=== PATIENT | female | born 1935 | race Two or more races ===

== ENCOUNTER 2017-03-30 09:49 | Emergency (ER) | payer OTHER ==
[~2017-03-30] VITALS: Ht 165.1 cm; Wt 69.9 kg
[~2017-03-30 09:49] MED LIST: ALBU2SYP PO; ALBUAER3 IN; ATOR1TAB PO; CETI-41 PO; FLUT50SP13; HYDR25TA4 PO; LISI-646 PO; PRED-188 PO; PSEU-123 PO
[2017-03-30 11:08] LABS: Basophils # (auto) 0.1 uL; Basophils % (auto) 0.8 % (0.0-2.0); CONDITION Y; Eosinophils # (auto) 0.1 uL; Eosinophils % (auto) 1.6 % (0.0-7.0); Hematocrit 43.3 % (36.0-46.0); Hemoglobin 14.5 g/dL (12.2-16.2); Lymphocytes # (auto) 1.5 uL; Lymphocytes % (auto) 21.6 % (10.0-50.0); Mean Corpuscular Hemoglobin 30.2 pg (28.0-32.0); Mean Corpuscular Hgb Conc. 33.4 g/dL (32.0-36.0); Mean Corpuscular Volume 90.4 fL (80.0-100.0); Mean Platelet Volume 7.9 fL (7.4-10.4); Monocytes # (auto) 0.5 uL; Neutrophils # (auto) 4.9 uL; Platelet Count (auto) 287 10^3/uL (140-450); Red Cell Distribution Width 13.3 % (11.6-16.0); White Blood Cell 7.1 10^3/uL (4.4-10.8)
[2017-03-30 11:28] LABS: Albumin 3.6 g/dL (3.4-5.0); BUN/Creatinine Ratio 29.4; Bilirubin, Total 0.5 mg/dL (0.2-1.0); Calcium 8.7 mg/dL (8.5-10.1); Potassium 4.2 mmol/L (3.5-5.1); Total Protein 7.6 g/dL (6.4-8.2)
[2017-03-30 13:45] VITALS: BP 155/89
== END 2017-03-30 14:20 | disposition home or self-care (01) ==
LOC: ER 09:51
DX: I87.2 Venous insufficiency (chronic) (peripheral) (principal); J44.9 Chronic obstructive pulmonary disease, unspecified; E78.5 Hyperlipidemia, unspecified; I10 Essential (primary) hypertension; Z79.899 Other long term (current) drug therapy; Z98.61 Coronary angioplasty status
CPT/HCPCS: 36415; 73610; 73630; 80053; 85025; 93971

== ENCOUNTER 2017-07-30 11:06 | Emergency (ER) | payer OTHER ==
[~2017-07-30] VITALS: Ht 162.6 cm; Wt 77.1 kg
[2017-07-30 12:19] LABS: Basophils # (auto) 0.1 uL; Basophils % (auto) 1.4 % (0.0-2.0); Eosinophils # (auto) 0.1 uL; Eosinophils % (auto) 1.7 % (0.0-7.0); Hematocrit 42.8 % (36.0-46.0); Hemoglobin 14.7 g/dL (12.2-16.2); Lymphocytes # (auto) 1.9 uL; Lymphocytes % (auto) 24.6 % (10.0-50.0); Mean Corpuscular Hemoglobin 30.7 pg (28.0-32.0); Mean Corpuscular Hgb Conc. 34.4 g/dL (32.0-36.0); Mean Corpuscular Volume 89.2 fL (80.0-100.0); Mean Platelet Volume 7.6 fL (6.9-10.8); Monocytes # (auto) 0.6 uL; Monocytes % (auto) 7.4 % (0.0-12.0); Neutrophils # (auto) 5.1 uL; Neutrophils % (auto) 64.9 % (37.0-80.0); Nucleated Red Blood Cells % 0.1 %; Platelet Count (auto) 193 10^3/uL (140-450); Red Cell Distribution Width 13.7 % (11.8-14.3); White Blood Cell 7.8 10^3/uL (4.4-10.8)
[2017-07-30 12:40] LABS: Albumin 3.6 g/dL (3.4-5.0); Anion Gap 9 (5-15); Aspartate Aminotransferase 15 U/L (15-37); Blood Urea Nitrogen 11 mg/dL (7-18); Calcium 8.9 mg/dL (8.5-10.1); Carbon Dioxide 28 mmol/L (21-32); Chloride 107 mmol/L (98-107); GFR African American 152 mL/min; GFR Non-African American 125 mL/min; Glucose 90 mg/dL (74-106); Potassium 3.8 mmol/L (3.5-5.1); Sodium 144 mmol/L (136-145)
[2017-07-30 12:44] VITALS: BP 186/86
[2017-07-30 12:44] LABS: Alkaline Phosphatase 111 U/L (45-117); Bilirubin, Total 0.6 mg/dL (0.2-1.0); Total Protein 7.4 g/dL (6.4-8.2)
[2017-07-30] MEDS ORDERED: cefTRIAXone 1GM/50ML D5W 50 ML IV ONE (14:00)
== END 2017-07-30 18:25 | disposition home or self-care (01) ==
LOC: ER 11:06
DX: L03.116 Cellulitis of left lower limb (principal); J44.9 Chronic obstructive pulmonary disease, unspecified; E78.5 Hyperlipidemia, unspecified; I10 Essential (primary) hypertension; Z98.61 Coronary angioplasty status; Z79.899 Other long term (current) drug therapy
CPT/HCPCS: 36415; 71020; 80053; 83735; 84484; 85025; 87040; 93005; 93971

== ENCOUNTER → 2017-12-07 | Outpatient (CLI) | payer OTHER ==
[~2017-12-07] MED LIST changes: -ALBU2SYP PO; +ALBU2SYP3 PO
[2017-12-07 13:21] LABS: Basophils # (auto) 0.1 uL; Basophils % (auto) 0.9 % (0.0-2.0); Eosinophils # (auto) 0.1 uL; Eosinophils % (auto) 1.1 % (0.0-7.0); Hematocrit 43.6 % (36.0-46.0); Lymphocytes # (auto) 2.1 uL; Lymphocytes % (auto) 27.2 % (10.0-50.0); Mean Corpuscular Hemoglobin 30.9 pg (28.0-32.0); Mean Corpuscular Hgb Conc. 34.4 g/dL (32.0-36.0); Monocytes # (auto) 0.5 uL; Monocytes % (auto) 6.4 % (0.0-12.0); Neutrophils % (auto) 64.4 % (37.0-80.0); Nucleated Red Blood Cells % 0.2 %; Platelet Count (auto) 246 10^3/uL (140-450); Red Blood Cells 4.84 10^6/uL (4.0-5.20); Red Cell Distribution Width 13.5 % (11.8-14.3); White Blood Cell 7.8 10^3/uL (4.4-10.8)
[2017-12-07 13:40] LABS: Albumin 4.1 g/dL (3.4-5.0); BUN/Creatinine Ratio 16.7; Calcium 9.1 mg/dL (8.5-10.1); Potassium 3.6 mmol/L (3.5-5.1)
[2017-12-07 13:43] LABS: Bilirubin, Total 0.6 mg/dL (0.2-1.0)
== END | disposition home or self-care (01) ==
LOC: LAB 13:01
PROVIDERS: ATTEND Internal Medicine
DX: J40 Bronchitis, not specified as acute or chronic (principal); I10 Essential (primary) hypertension
CPT/HCPCS: 36415; 80053; 84439; 84443; 85025; 85652

== ENCOUNTER → 2018-03-28 | Outpatient (CLI) | payer OTHER ==
[2018-03-28 08:45] LABS: Basophils # (auto) 0.1 uL; Basophils % (auto) 0.8 % (0.0-2.0); Eosinophils # (auto) 0.1 uL; Eosinophils % (auto) 1.6 % (0.0-7.0); Hematocrit 44.8 % (36.0-46.0); Hemoglobin 15.1 g/dL (12.2-16.2); Lymphocytes # (auto) 1.7 uL; Lymphocytes % (auto) 22.6 % (10.0-50.0); Mean Corpuscular Hemoglobin 30.3 pg (28.0-32.0); Mean Corpuscular Hgb Conc. 33.8 g/dL (32.0-36.0); Mean Corpuscular Volume 89.7 fL (80.0-100.0); Monocytes # (auto) 0.6 uL; Monocytes % (auto) 8.5 % (0.0-12.0); Neutrophils # (auto) 4.9 uL; Neutrophils % (auto) 66.5 % (37.0-80.0); Nucleated Red Blood Cells % 0.1 %; Platelet Count (auto) 224 10^3/uL (140-450); Red Cell Distribution Width 13.2 % (11.8-14.3); White Blood Cell 7.3 10^3/uL (4.4-10.8)
[2018-03-28 09:15] LABS: BUN/Creatinine Ratio 25.9; Calcium 8.5 mg/dL (8.5-10.1); Potassium 3.6 mmol/L (3.5-5.1)
== END | disposition home or self-care (01) ==
LOC: LAB 08:16
PROVIDERS: ATTEND Internal Medicine
DX: J45.909 Unspecified asthma, uncomplicated (principal); R05 Cough; I10 Essential (primary) hypertension
CPT/HCPCS: 36415; 80048; 80061; 83615; 84443; 85025; 85652

== ENCOUNTER → 2018-10-12 | Outpatient (CLI) | payer OTHER ==
[2018-10-12 08:13] LABS: Urine Bacteria FEW /hpf (None Seen); Urine Blood Negative /uL (Negative); Urine Mucus FEW (None Seen); Urine WBC 1 /hpf (0 - 5)
[2018-10-12 08:31] LABS: Albumin 3.5 g/dL (3.4-5.0); Calcium 8.6 mg/dL (8.5-10.1); Potassium 3.9 mmol/L (3.5-5.1)
[2018-10-12 08:35] LABS: Bilirubin, Total 0.3 mg/dL (0.2-1.0); Total Protein 7.2 g/dL (6.4-8.2)
[2018-10-12 08:43] LABS: Free T4 (Free Thyroxine) 1.04 ng/dL (0.89-1.76)
== END | disposition home or self-care (01) ==
LOC: LAB 07:25
PROVIDERS: ATTEND Internal Medicine
DX: E78.5 Hyperlipidemia, unspecified (principal); R73.03 Prediabetes; R42 Dizziness and giddiness
CPT/HCPCS: 36415; 80053; 80061; 81001; 82043; 82607; 83036; 84439; 84443

== ENCOUNTER 2019-01-09 15:43 | Emergency (ER) | payer OTHER ==
[~2019-01-09] VITALS: Ht 160 cm; Wt 80.7 kg
[2019-01-09 15:53] VITALS: BP 96/51
[2019-01-09 16:25] LABS: Basophils # (auto) 0.1 uL; Basophils % (auto) 0.9 % (0.0-2.0); Eosinophils # (auto) 0.1 uL; Eosinophils % (auto) 1.7 % (0.0-7.0); Hematocrit 40.8 % (36.0-46.0); Hemoglobin 13.5 g/dL (12.2-16.2); Lymphocytes # (auto) 1.6 uL; Mean Corpuscular Hemoglobin 30.7 pg (28.0-32.0); Mean Corpuscular Hgb Conc. 33.1 g/dL (32.0-36.0); Mean Corpuscular Volume 92.8 fL (80.0-100.0); Monocytes # (auto) 0.7 uL; Monocytes % (auto) 9.4 % (0.0-12.0); Neutrophils # (auto) 4.8 uL; Platelet Count (auto) 213 10^3/uL (140-450); Red Blood Cells 4.39 10^6/uL (4.0-5.20); Red Cell Distribution Width 13.7 % (11.8-14.3); White Blood Cell 7.2 10^3/uL (4.4-10.8)
[2019-01-09 16:36] LABS: Albumin 3.3 g/dL (3.4-5.0); Anion Gap 5 (5-15); Blood Urea Nitrogen 14 mg/dL (7-18); Calcium 8.5 mg/dL (8.5-10.1); Carbon Dioxide 27 mmol/L (21-32); Chloride 106 mmol/L (98-107); Glucose 95 mg/dL (74-106); Magnesium 2.2 mg/dL (1.6-2.6); Potassium 3.9 mmol/L (3.5-5.1); Sodium 138 mmol/L (136-145)
[2019-01-09 16:41] LABS: Alanine Aminotransferase 31 U/L (13-56); Alkaline Phosphatase 94 U/L (45-117); Aspartate Aminotransferase 19 U/L (15-37); BUN/Creatinine Ratio 20.3; Bilirubin, Total 0.2 mg/dL (0.2-1.0); GFR African American 104 mL/min; GFR Non-African American 86 mL/min
== END 2019-01-09 19:22 | disposition left against medical advice (07) ==
LOC: ER 15:52
DX: R06.02 Shortness of breath (principal); R05 Cough; Z53.21 Procedure and treatment not carried out due to patient leaving prior to being seen by health care provider
CPT/HCPCS: 36415; 71045; 80053; 83735; 83880; 84484; 85025; 93005

== ENCOUNTER 2019-08-19 13:17 | Emergency (ER) | payer OTHER ==
[~2019-08-19] VITALS: Ht 170.2 cm; Wt 90.7 kg
[2019-08-19 14:08] LABS: Basophils # (auto) 0.1 uL; Basophils % (auto) 0.8 % (0.0-2.0); Eosinophils # (auto) 0.2 uL; Eosinophils % (auto) 1.3 % (0.0-7.0); Hemoglobin 13.3 g/dL (12.2-16.2); Lymphocytes # (auto) 1.2 uL; Mean Corpuscular Hemoglobin 30.7 pg (28.0-32.0); Mean Corpuscular Hgb Conc. 33.2 g/dL (32.0-36.0); Mean Corpuscular Volume 92.7 fL (80.0-100.0); Monocytes # (auto) 1.2 uL; Monocytes % (auto) 9.3 % (0.0-12.0); Neutrophils # (auto) 10.5 uL; Neutrophils % (auto) 79.6 % (37.0-80.0); Platelet Count (auto) 234 10^3/uL (140-450); Red Blood Cells 4.32 10^6/uL (4.0-5.20); Red Cell Distribution Width 13.1 % (11.8-14.3); White Blood Cell 13.1 10^3/uL (4.4-10.8)
[2019-08-19] MEDS ORDERED: IPRATROPIUM BROM 0.5 MG/2.5ML INH SOL NEB ONE (14:15)
[2019-08-19] MEDS ORDERED: ALBUTEROL SULF 2.5 MG/0.5ML(0.5%) NEB SOLN NEB ONE (14:15)
[2019-08-19] MEDS ORDERED: methylPREDNISolone SOD SUCC 125 MG/2 ML VL IV ONE (14:15)
[2019-08-19 14:37] LABS: Albumin 3.1 g/dL (3.4-5.0); Calcium 8.8 mg/dL (8.5-10.1); Magnesium 2.3 mg/dL (1.6-2.6)
[2019-08-19 14:45] LABS: BUN/Creatinine Ratio 16.7; Bilirubin, Total 0.6 mg/dL (0.2-1.0); Total Protein 7.8 g/dL (6.4-8.2)
[2019-08-19] MEDS ORDERED: IOHEXOL 350 MG/ML 100ML IJ ONE (17:03)
[2019-08-19 18:53] LABS: Urine Bacteria FEW /hpf (None Seen); Urine Blood TRACE /uL (Negative); Urine Mucus MODERATE (None Seen); Urine Specific Gravity 1.028 (1.001-1.035); Urine WBC 34 /hpf (0 - 5)
[2019-08-19 21:00] VITALS: BP 136/58
[2019-08-19] MEDS ORDERED: cefTRIAXone 1GM/50ML D5W 50 ML IV ONE (21:00)
== END 2019-08-19 22:00 | disposition home or self-care (01) ==
LOC: EDBD 13:17 → ER 13:20
DX: J44.9 Chronic obstructive pulmonary disease, unspecified (principal); R53.1 Weakness; R79.89 Other specified abnormal findings of blood chemistry; R79.1 Abnormal coagulation profile; E78.00 Pure hypercholesterolemia, unspecified; I10 Essential (primary) hypertension; E78.5 Hyperlipidemia, unspecified
CPT/HCPCS: 36415; 71046; 71275; 80053; 81001; 83735; 84484; 85025; 85379; 87804; 93005; 94640; 96365; 96375; 99284; J0696; J2930; J7611; J7644; Q9967

== ENCOUNTER → 2020-03-11 | Outpatient (CLI) | payer OTHER ==
[2020-03-11 09:30] LABS: Albumin 3.8 g/dL (3.4-5.0); Potassium 4.5 mmol/L (3.5-5.1)
[2020-03-11 09:35] LABS: BUN/Creatinine Ratio 21.7; Bilirubin, Total 0.5 mg/dL (0.2-1.0); Calcium 9.4 mg/dL (8.5-10.1); Total Protein 7.8 g/dL (6.4-8.2)
== END | disposition home or self-care (01) ==
LOC: LAB 08:49
PROVIDERS: ATTEND Internal Medicine
DX: I50.32 Chronic diastolic (congestive) heart failure (principal); E11.9 Type 2 diabetes mellitus without complications; I10 Essential (primary) hypertension
CPT/HCPCS: 36415; 80053; 80061; 82043; 83036; 83880; 84443

== ENCOUNTER 2020-03-29 11:45 | Inpatient (IN) | payer OTHER ==
[~2020-03-29] VITALS: Ht 165.1 cm; Wt 74.3 kg
[2020-03-29 13:08] LABS: Basophils # (auto) 0.1 10 ^3/uL (0-0.2); Basophils % (auto) 0.9 % (0.0-2.0); Eosinophils # (auto) 0.2 10 ^3/uL (0-0.8); Eosinophils % (auto) 3.3 % (0.0-7.0); Hematocrit 42.3 % (36.0-46.0); Hemoglobin 14.4 g/dL (12.2-16.2); Lymphocytes # (auto) 1.3 10 ^3/uL (0.4-5.4); Lymphocytes % (auto) 17.9 % (10.0-50.0); Mean Corpuscular Hgb Conc. 34.1 g/dL (32.0-36.0); Mean Corpuscular Volume 93.9 fL (80.0-100.0); Monocytes # (auto) 0.5 10 ^3/uL (0-1.3); Monocytes % (auto) 6.9 % (0.0-12.0); Neutrophils # (auto) 5.3 10 ^3/uL (1.6-8.6); Nucleated Red Blood Cells % 0.1 %; Platelet Count (auto) 227 10^3/uL (140-450); Red Cell Distribution Width 13.9 % (11.8-14.3); White Blood Cell 7.4 10^3/uL (4.4-10.8)
[2020-03-29 13:26] LABS: Albumin 3.4 g/dL (3.4-5.0); Calcium 8.7 mg/dL (8.5-10.1); Magnesium 2.2 mg/dL (1.6-2.6); Potassium 4.3 mmol/L (3.5-5.1)
[2020-03-29 13:28] LABS: BUN/Creatinine Ratio 21.1
[2020-03-29 13:42] LABS: Bilirubin, Total 0.4 mg/dL (0.2-1.0); Total Protein 7.4 g/dL (6.4-8.2)
[2020-03-29] MEDS ORDERED: MORPHINE SULF INJ 2 MG/ML SYRINGE 1ML IV PRN (14:15)
[2020-03-29] MEDS ORDERED: NITROGLYCERIN 0.4 MG SL TAB SL PRN (14:15)
[2020-03-29] MEDS ORDERED: DEXTROSE (50%) 50ML SYRG IV PRN (14:30)
[2020-03-29] MEDS ORDERED: ZOLPIDEM TARTRATE 5 MG TAB PO PRN (14:30)
[2020-03-29] MEDS ORDERED: ACETAMINOPHEN 500 MG TAB PO PRN (14:30)
[2020-03-29] MEDS ORDERED: ALBUTEROL SULF 2.5 MG/0.5ML(0.5%) NEB SOLN NEB PRN (14:30)
[2020-03-29] MEDS: DOXYCYCLINE 100MG/250ML 250 ML IV SCH (15:23)
[2020-03-29 16:06] VITALS: BP 159/85
--- NOTE | 2020-03-29 16:06 | NUR ---
Received patient on the floor. Patient shows no signs of distress at this time. Bed in lowest position, side rails up x2, and the call light is within reach.
[2020-03-29 17:00] VITALS: BP 159/85
[2020-03-29] MEDS: InsuLIN REG 1unit/0.01ml Soln (100units/ml) SC SCH ×2 (17:00→22:00)
[2020-03-29] MEDS: ACCU-CHEK COMFORT CURVE STRIP VI SCH ×2 (17:30→22:00)
[2020-03-29 17:53] LABS: CRP High Sensitivity 0.2 mg/dL (< 0.3)
[2020-03-29] MEDS: IPRATROPIUM BROM 0.5 MG/2.5ML INH SOL NEB SCH (17:57)
[2020-03-29] MEDS: ALBUTEROL SULF 2.5 MG/0.5ML(0.5%) NEB SOLN NEB SCH (17:57)
[2020-03-29 18:00] VITALS: BP 159/85
--- NOTE | 2020-03-29 18:03 | NUR ---
Paged Hospitalist regarding increased blood pressure and trops.
--- NOTE | 2020-03-29 18:11 | NUR ---
Dr Molina called back. New orders received.
[2020-03-29] MEDS ORDERED: hydrALAZINE HCL 20 MG/ML VL IV PRN (18:15)
[2020-03-29] MEDS ORDERED: ENOXAPARIN SOD 100 MG/1 ML SYRINGE SC ONE (18:15)
--- NOTE | 2020-03-29 19:15 | NUR ---
Opening Shift Note Received report from charisma Rodrigues RN. Assumed care of patient, awake and alert. No S/S of distress/SOB or pain. Instructed on POC and to call for assist PRN, will continue to monitor for changes Q1hr and PRN. Bed placed in lowest position, bed alarm turned on and call light within reach.
--- NOTE | 2020-03-29 19:26 | NUR ---
Endorsed care to Ioana RN. Patient shows no signs of distress.
[2020-03-29 20:00] VITALS: BP 131/54
[2020-03-29] MEDS: SODIUM CHLOR 0.9% PF (SALINE LOCK) 10ML VIAL/SYR IV SCH (21:53)
[2020-03-29] MEDS: LACTULOSE 20Gm/30ML SOLN PO PRN (21:54)
[2020-03-29] MEDS: METOPROLOL TARTRATE 25 MG TAB PO SCH (21:54)
[2020-03-29] MEDS: ATORVASTATIN 20 MG TAB PO SCH (21:54)
--- NOTE | 2020-03-29 21:54 | NUR ---
Patient is requesting something for constipation. Given lactulose as ordered. Will monitor
[2020-03-29 22:00] VITALS: BP 131/54
--- NOTE | 2020-03-30 | NUR ---
Advise patient of Nothing -by-Mouth status r/t possible stress test today. Emptied water containers, patient verbalized understanding.
[2020-03-30] MEDS: IPRATROPIUM BROM 0.5 MG/2.5ML INH SOL NEB SCH ×5 (00:10→23:39)
[2020-03-30] MEDS: ALBUTEROL SULF 2.5 MG/0.5ML(0.5%) NEB SOLN NEB SCH ×5 (00:10→23:39)
[2020-03-30] MEDS: DOXYCYCLINE 100MG/250ML 250 ML IV SCH ×2 (02:30→13:59)
--- NOTE | 2020-03-30 02:30 | NUR ---
Doxycycline non-administered r/t medication unavailable/back order
[2020-03-30 05:00] VITALS: BP 122/53
--- NOTE | 2020-03-30 05:30 | NUR ---
IV insertion IV access obtained, via clean sterile technique by inserting 20 gauge catheter at left forearm after attemp. IV secured properly. No trauma to site. Patient tolerated procedure well.
[2020-03-30] MEDS: InsuLIN REG 1unit/0.01ml Soln (100units/ml) SC SCH ×4 (06:35→21:49)
[2020-03-30] MEDS: SODIUM CHLOR 0.9% PF (SALINE LOCK) 10ML VIAL/SYR IV SCH ×3 (06:35→21:57)
[2020-03-30] MEDS: ACCU-CHEK COMFORT CURVE STRIP VI SCH ×4 (06:35→21:49)
--- NOTE | 2020-03-30 07:30 | NUR ---
Opening Note Assumed patient care from [facility] RNIoana. Patient currently laying on right side with eyes closed, respirations even and unlabored. No signs of distress at this time, safety precautions in place, will continue to monitor.
--- NOTE | 2020-03-30 08:00 | NUR ---
Called Stress Lab No answer. Per [facility], stress lab closed on weekends.
--- NOTE | 2020-03-30 08:30 | NUR ---
at Station Dr. Drake at station, patient to have stress test on Wednesday. Per MD, will discuss plan of care with patient.
[2020-03-30 09:00] VITALS: BP 157/81
--- NOTE | 2020-03-30 09:30 | NUR ---
at Bedside Dr. Drake at bedside discussing plan of care with patient.
[2020-03-30] MEDS: FUROSEMIDE 40 MG/4 ML VIAL IV SCH (09:36)
[2020-03-30] MEDS: ENOXAPARIN SOD 80 MG/0.8ML SYRINGE SC SCH ×2 (09:36→21:49)
[2020-03-30] MEDS: ASPirin 81 mg TAB PO SCH (09:37)
[2020-03-30] MEDS: METOPROLOL TARTRATE 25 MG TAB PO SCH ×2 (09:37→21:48)
[2020-03-30] MEDS: LISINOPRIL 20 MG TAB PO SCH (09:38)
[2020-03-30] MEDS: NITROGLYCERIN 0.2MG/HR TOPICAL PATCH TD SCH (09:39)
[2020-03-30] MEDS: POTASSIUM CHL 20 Meq TABLET PO SCH (09:40)
[2020-03-30] MEDS ORDERED: PATIENTS OWN MEDICATION (Atorvastatin Calcium 1 TAB) PO SCH (10:00)
[2020-03-30] MEDS ORDERED: ENOXAPARIN SOD 40 MG/0.4 ML SYRINGE SC SCH (10:00)
--- NOTE | 2020-03-30 10:40 | NUR ---
at Bedside Dr. Awan at bedside discussing plan of care with patient, no new orders at this time. MD aware of stress test scheduled for Wednesday.
--- NOTE | 2020-03-30 11:00 | NUR ---
Next of Kin Per patient, daughter Xotchitl is point of contact. Contact information updated.
[2020-03-30 13:00] VITALS: BP 112/56
--- NOTE | 2020-03-30 13:04 | NUR ---
Respiratory note: PT REFUSING SCHEDULED MED NEB TX, STATES SHE DOESN'T FEEL SHE NEEDS IT. PT IS AWAKE AND ALERT, SITTING IN BED EATING LUNCH. PT DENIES SOB, NO DISTRESS NOTED. PT AND RN AWARE TO HAVE RT PAGED IF NEEDED. HR 60 RR 16 SPO2 94% ON RA. BREATH SOUNDS ARE CLEAR/DIMINISHED T/O.
[2020-03-30 17:00] VITALS: BP 118/82
--- NOTE | 2020-03-30 18:59 | NUR ---
Closing Note Report given to GIANNI Oden.
--- NOTE | 2020-03-30 19:15 | NUR ---
OPENING NOTE Received report from charisma Mathew RN. Assumed care of patient, awake and alert. No S/S of distress/SOB or pain. Instructed on POC and to call for assist PRN, will continue to monitor for changes Q1hr and PRN. Bed placed in lowest position, bed alarm turned on and call light within reach.
[2020-03-30] MEDS: ATORVASTATIN 20 MG TAB PO SCH (21:48)
[2020-03-30 22:00] VITALS: BP 96/54
[2020-03-31] MEDS: DOXYCYCLINE 100MG/250ML 250 ML IV SCH (02:30)
[2020-03-31 05:00] VITALS: BP 96/52
[2020-03-31] MEDS: ALBUTEROL SULF 2.5 MG/0.5ML(0.5%) NEB SOLN NEB SCH ×4 (06:09→23:51)
[2020-03-31] MEDS: IPRATROPIUM BROM 0.5 MG/2.5ML INH SOL NEB SCH ×4 (06:09→23:51)
--- NOTE | 2020-03-31 06:21 | NUR ---
Patient is resting in bed with eyes closed, no distress noted, saturating at 93% on room air.
[2020-03-31] MEDS: SODIUM CHLOR 0.9% PF (SALINE LOCK) 10ML VIAL/SYR IV SCH ×3 (06:57→23:34)
[2020-03-31] MEDS: ACCU-CHEK COMFORT CURVE STRIP VI SCH (06:57)
[2020-03-31] MEDS: InsuLIN REG 1unit/0.01ml Soln (100units/ml) SC SCH (06:58)
--- NOTE | 2020-03-31 07:48 | NUR ---
Opening Note Assumed patient care from [facility] RNIoana. Patient currently laying on her right side, eyes closed, respirations even and unlabored on room air. No signs of distress at this time. Safety precautions in place, will continue to monitor.
[2020-03-31 08:49] VITALS: BP 130/52
[2020-03-31] MEDS: POTASSIUM CHL 20 Meq TABLET PO SCH (10:00)
[2020-03-31] MEDS: FUROSEMIDE 40 MG/4 ML VIAL IV SCH (10:00)
[2020-03-31] MEDS: METOPROLOL TARTRATE 25 MG TAB PO SCH ×3 (10:28→22:00)
[2020-03-31] MEDS: ASPirin 81 mg TAB PO SCH (10:28)
[2020-03-31] MEDS: LISINOPRIL 20 MG TAB PO SCH (10:29)
[2020-03-31] MEDS: NITROGLYCERIN 0.2MG/HR TOPICAL PATCH TD SCH (10:29)
[2020-03-31] MEDS: ENOXAPARIN SOD 80 MG/0.8ML SYRINGE SC SCH ×2 (10:29→21:18)
--- NOTE | 2020-03-31 10:49 | NUR ---
at Bedside Dr. Awan at bedside discussing plan of care with patient. MD aware of patient refusing potassium, per MD, hold Lasix at this time.
--- NOTE | 2020-03-31 11:09 | NUR ---
Accu-checks Per MD, discontinue accu-checks and insulin sliding scale. Addendum: 03/31/20 at 1115 by STERLING LOPEZ RN RN Patient states she does not have a history of diabetes, A1C 6.6. made aware.
[2020-03-31 13:00] VITALS: BP 123/57
--- NOTE | 2020-03-31 13:11 | NUR ---
MD Called Spoke with Dr. Awan, per , change Vibramycin order to 100mg BID PO. Read back confirmation.
[2020-03-31] MEDS: traMADol HCL 50 MG TAB PO PRN (14:26)
[2020-03-31] MEDS: DOXYCYCLINE 100 MG TAB/CAP PO SCH ×2 (14:26→21:17)
[2020-03-31 16:42] VITALS: BP 106/58
--- NOTE | 2020-03-31 16:48 | NUR ---
Called MD Spoke with Dr. Ela Awan. Aware that patient is asking order for shower. Per MD, possibly tomorrow, no new orders at this time.
--- NOTE | 2020-03-31 19:31 | NUR ---
Closing Note Report given to GIANNI BAY.
--- NOTE | 2020-03-31 21:15 | NUR ---
Patient is complaining of constipation and would like to have laxatives. Given lactulose as ordered. Will monitor.
[2020-03-31] MEDS: LACTULOSE 20Gm/30ML SOLN PO PRN (21:17)
[2020-03-31] MEDS: ATORVASTATIN 20 MG TAB PO SCH (21:17)
[2020-03-31 22:00] VITALS: BP 153/67
--- NOTE | 2020-04-01 | NUR ---
Instructed patient not to eat or drink after midnight r/t cardiolite stress test in the morning. Patient verbalized understaning.
[2020-04-01 05:00] VITALS: BP 117/59
[2020-04-01] MEDS: IPRATROPIUM BROM 0.5 MG/2.5ML INH SOL NEB SCH ×3 (05:55→19:09)
[2020-04-01] MEDS: ALBUTEROL SULF 2.5 MG/0.5ML(0.5%) NEB SOLN NEB SCH ×3 (05:55→19:10)
[2020-04-01] MEDS: SODIUM CHLOR 0.9% PF (SALINE LOCK) 10ML VIAL/SYR IV SCH ×3 (06:37→22:33)
--- NOTE | 2020-04-01 07:20 | NUR ---
OPENING NOTE Assumed responsibility of patient at 0700. Patient is alert and oriented x 4. No signs of respiratory distress noted at this time. Patient verbalized that she has no pain at this time. Updated patient on plan of care. Bed locked in lowest position, said rails up x 2, HOB elevated at least 30 degrees and call light within reach.
--- NOTE | 2020-04-01 08:00 | NUR ---
PATIENT OUT TO CARDIAC STRESS TEST
[2020-04-01] MEDS ORDERED: ADENOSINE 65 MG in GIVE UN-DILUTED 0 ML IV STA (08:20)
--- NOTE | 2020-04-01 08:45 | NUR ---
PATIENT RETURNED FROM FROM CARDIAC STRESS TEST
[2020-04-01] MEDS: METOPROLOL TARTRATE 25 MG TAB PO SCH ×2 (10:00→22:00)
[2020-04-01] MEDS: LISINOPRIL 20 MG TAB PO SCH (10:15)
[2020-04-01] MEDS: DOXYCYCLINE 100 MG TAB/CAP PO SCH ×2 (10:16→22:37)
[2020-04-01] MEDS: ASPirin 81 mg TAB PO SCH (10:16)
[2020-04-01] MEDS: NITROGLYCERIN 0.2MG/HR TOPICAL PATCH TD SCH (10:16)
[2020-04-01] MEDS: POTASSIUM CHL 20 Meq TABLET PO SCH (10:16)
[2020-04-01] MEDS: ENOXAPARIN SOD 80 MG/0.8ML SYRINGE SC SCH ×2 (10:18→22:39)
[2020-04-01] MEDS: FUROSEMIDE 40 MG/4 ML VIAL IV SCH (10:18)
[2020-04-01 13:00] VITALS: BP 103/48
[2020-04-01 17:00] VITALS: BP 124/59
[2020-04-01 21:48] VITALS: BP 124/59
[2020-04-01 22:00] VITALS: BP 125/44
[2020-04-01] MEDS: ATORVASTATIN 20 MG TAB PO SCH (22:37)
--- NOTE | 2020-04-02 00:21 | NUR ---
Respiratory note: PT REQUESTED NOT TO BE WOKEN UP IF SLEEPING AT THE TIME OF HER NEXT SCHEDULED TREATMENT. PT SLEEPING WHEN ENTERING THE ROOM AT 0021. Addendum: 04/03/20 at 0316 by MALIK PAULSON, RT DOCUMENTED THE INCORRECT DATE. THIS TOOK PLACE ON 04/03 AT 0021.
--- NOTE | 2020-04-02 01:00 | NUR ---
Respiratory note: NO BREATHING TX GIVEN AT THIS TIME, PT REFUSED DURING LAST TX, STATED SHE WILL TAKE IT IN THE AM. PT AWARE TO CALL IF SHE BECOMES SOB.
--- NOTE | 2020-04-02 02:38 | NUR ---
OPENING NOTE Assumed care of patient, awake and alert. No S/S of distress/SOB or pain. Instructed on POC and to call for assist PRN, will continue to monitor for changes Q1hr and PRN. Bed placed in lowest position, bed alarm turned on and call light within reach. Addendum: 04/02/20 at 0241 by BRAN HUI RN THIS NOTE IS FOR 190904/01/20
[2020-04-02 05:00] VITALS: BP 112/76
[2020-04-02] MEDS: SODIUM CHLOR 0.9% PF (SALINE LOCK) 10ML VIAL/SYR IV SCH ×3 (06:19→23:06)
[2020-04-02] MEDS: IPRATROPIUM BROM 0.5 MG/2.5ML INH SOL NEB SCH ×4 (07:18→18:36)
[2020-04-02] MEDS: ALBUTEROL SULF 2.5 MG/0.5ML(0.5%) NEB SOLN NEB SCH ×4 (07:18→18:36)
--- NOTE | 2020-04-02 07:30 | NUR ---
OPENING NOTE Assumed responsibility. Patient is alert and oriented x 4. No signs of respiratory distress noted at this time. Patient verbalized that she has no pain at this time. Updated patient on plan of care. Bed locked in lowest position, said rails up x 2, HOB elevated at least 30 degrees and call light within reach. Will continue to monitor for changes.
[2020-04-02 08:40] VITALS: BP 127/61
[2020-04-02 09:28] VITALS: BP 147/65
[2020-04-02] MEDS: NITROGLYCERIN 0.2MG/HR TOPICAL PATCH TD SCH (10:00)
[2020-04-02] MEDS: LISINOPRIL 20 MG TAB PO SCH (10:29)
[2020-04-02] MEDS: ENOXAPARIN SOD 80 MG/0.8ML SYRINGE SC SCH ×2 (10:29→22:00)
[2020-04-02] MEDS: ASPirin 81 mg TAB PO SCH (10:30)
[2020-04-02] MEDS: METOPROLOL TARTRATE 25 MG TAB PO SCH ×2 (10:30→23:07)
[2020-04-02] MEDS: DOXYCYCLINE 100 MG TAB/CAP PO SCH (10:30)
[2020-04-02] MEDS: POTASSIUM CHL 20 Meq TABLET PO SCH (10:30)
[2020-04-02] MEDS: FUROSEMIDE 40 MG/4 ML VIAL IV SCH (10:31)
[2020-04-02 13:14] VITALS: BP 132/62
--- NOTE | 2020-04-02 14:17 | NUR ---
Nutrition Assessment Note please see attached link for complete assessment Est Energy needs BW 76 [id number] kcals (23-25 kcal/kgBW), Est Protein needs: 76-83 gms/day (1.0-1.1 gm/kgBW). Will continue to monitor and reassess prn. Addendum: 04/02/20 at [address] Amended: Links added.
[2020-04-02 16:41] VITALS: BP 129/63
[2020-04-02 18:37] LABS: Calcium 9.5 mg/dL (8.5-10.1); Potassium 5.3 mmol/L (3.5-5.1)
[2020-04-02 18:39] LABS: BUN/Creatinine Ratio 28.9
--- NOTE | 2020-04-02 19:15 | NUR ---
OPENING NOTE Assumed responsibility of patient AT THIS TIME Patient is alert and oriented x 4. No signs of respiratory distress noted at this time. Patient verbalized that she has no pain at this time. Updated patient on plan of care. Bed locked in lowest position, said rails up x 2, HOB elevated at least 30 degrees and call light within reach.
[2020-04-02 22:00] VITALS: BP 105/61
[2020-04-02] MEDS: ATORVASTATIN 20 MG TAB PO SCH (23:06)
[2020-04-03 05:07] VITALS: BP 128/53
[2020-04-03 06:07] LABS: Basophils # (auto) 0.1 10 ^3/uL (0-0.2); Basophils % (auto) 0.8 % (0.0-2.0); Eosinophils # (auto) 0.4 10 ^3/uL (0-0.8); Hemoglobin 14.1 g/dL (12.2-16.2); Lymphocytes # (auto) 2.2 10 ^3/uL (0.4-5.4); Lymphocytes % (auto) 28.2 % (10.0-50.0); Mean Corpuscular Hemoglobin 32.6 pg (28.0-32.0); Mean Corpuscular Hgb Conc. 34.4 g/dL (32.0-36.0); Mean Corpuscular Volume 94.6 fL (80.0-100.0); Monocytes # (auto) 0.7 10 ^3/uL (0-1.3); Monocytes % (auto) 9.2 % (0.0-12.0); Neutrophils # (auto) 4.5 10 ^3/uL (1.6-8.6); Neutrophils % (auto) 56.8 % (37.0-80.0); Platelet Count (auto) 220 10^3/uL (140-450); Red Blood Cells 4.34 10^6/uL (4.0-5.20); Red Cell Distribution Width 13.6 % (11.8-14.3)
[2020-04-03 06:21] LABS: INR 1.02 (0.9-1.15); Partial Thromboplastin Time 28.5 sec (23.64-32.05)
[2020-04-03] MEDS: SODIUM CHLOR 0.9% PF (SALINE LOCK) 10ML VIAL/SYR IV SCH ×3 (06:34→21:24)
[2020-04-03 06:46] LABS: Potassium 4.4 mmol/L (3.5-5.1)
[2020-04-03 07:10] LABS: BUN/Creatinine Ratio 29.8; Calcium 9.3 mg/dL (8.5-10.1)
[2020-04-03] MEDS ORDERED: IODIXANOL 320MG/ML 100ML BTL IV ONE ×2 (07:18→09:31)
--- NOTE | 2020-04-03 07:20 | NUR ---
END OF SHIFT NOTES ENDORSE PT CARE TO DAY SHIFT RN PT A0X4,NO S/S OF DISTRESS OR SOB
[2020-04-03] MEDS: ALBUTEROL SULF 2.5 MG/0.5ML(0.5%) NEB SOLN NEB SCH ×4 (07:24→18:00)
[2020-04-03] MEDS: IPRATROPIUM BROM 0.5 MG/2.5ML INH SOL NEB SCH ×4 (07:24→18:00)
--- NOTE | 2020-04-03 07:25 | NUR ---
UA SENT TO LAB
--- NOTE | 2020-04-03 07:30 | NUR ---
Opening Shift Note Assumed care of patient, awake and alert. No S/S of distress/SOB or pain. Instructed on POC and to call for assist PRN, will continue to monitor for changes Q1hr and PRN. Bed is locked and in lowest position, call light within reach.
[2020-04-03 07:46] LABS: Urine Bacteria FEW /hpf (None Seen); Urine Blood Negative /uL (Negative); Urine Hyaline Cast FEW /lpf (0 - 2); Urine Specific Gravity 1.014 (1.001-1.035); Urine WBC 12 /hpf (0 - 5)
[2020-04-03 09:00] VITALS: BP 98/43
--- NOTE | 2020-04-03 09:15 | NUR ---
CATTLE DEHORNER PATIENT TAKEN TO CATTLE DEHORNER NO DISTRESS NOTED.
[2020-04-03] MEDS ORDERED: LIDOCAINE 2%HCL (LOCAL ANESTH.) INJ 20ML MDV ONE (09:31)
[2020-04-03] MEDS ORDERED: ANGIOMAX 250 MG VIAL IV ONE (09:59)
[2020-04-03] MEDS ORDERED: HEPARIN SODIUM (PORCINE) 5000 UNITS/ML 1ML VIAL ONE (09:59)
[2020-04-03] MEDS: POTASSIUM CHL 20 Meq TABLET PO SCH (10:00)
[2020-04-03] MEDS: ASPirin 81 mg TAB PO SCH (10:00)
[2020-04-03] MEDS: METOPROLOL TARTRATE 25 MG TAB PO SCH ×2 (10:00→21:26)
[2020-04-03] MEDS: NITROGLYCERIN 0.2MG/HR TOPICAL PATCH TD SCH (10:00)
[2020-04-03] MEDS: FUROSEMIDE 40 MG/4 ML VIAL IV SCH (10:00)
[2020-04-03] MEDS ORDERED: fentaNYL CITRATE 100 MCG/2 ML VL ONE (10:00)
[2020-04-03] MEDS: ENOXAPARIN SOD 80 MG/0.8ML SYRINGE SC SCH ×2 (10:00→21:25)
[2020-04-03] MEDS ORDERED: MIDAZOLAM HCL 1MG/1ML-2 ML VIAL ONE (10:00)
[2020-04-03] MEDS: LISINOPRIL 20 MG TAB PO SCH (10:00)
[2020-04-03] MEDS ORDERED: VERAPAMIL 2.5MG/ML INJ 2ML VIAL IV ONE (10:00)
[2020-04-03] MEDS ORDERED: SODIUM CHL 0.9% 0 ML ONE (10:01)
--- NOTE | 2020-04-03 11:50 | NUR ---
PATIENT BACK TO ROOM FROM MANAGER APPOINTMENT. Report received from ALIRIO BAY. NO SIGNS AND SYMPTOMS OF DISTRESS. RIGHT WRIST INCISION HAS VASC BAND IN PLACE. OKAY TO BEGIN DEFLATION AT 1155 AM. PATIENT INSTRUCTED TO CALL FOR ASSISTANCE NEEDED. CALL LIGHT WITHIN REACH.
--- NOTE | 2020-04-03 11:55 | NUR ---
VASC BAND REMOVAL VASC BAND REMOVAL PER INSTRUCTION SEE CHART FOR INSTRUCTIONS. PATIENT TOLERATED WELL, GAUZE AND TEGADERM APPLIED. PATIENT INSTRUCTED TO CALL FOR ANY BLEEDING OR NUMBNESS. PATIENT EDUCATED PER VASC BAND INSTRUCTIONS. Addendum: 04/03/20 at 1400 by ELISABETH PAULSON RN RN CORRECT TIME INITIATED REMOVAL AT 1155 AM AND COMPLETED AT 1330.
[2020-04-03 12:25] VITALS: BP 119/58
--- NOTE | 2020-04-03 15:52 | NUR ---
assessment Patient is a 84 year old female who is sleeping. Per patients daughter Nayeli [phone] who is patients emergency contact prior to admission patient lived home alone and was independent. Per Nayeli patient was having back pain and not feeling well so Nayeli called 911 thinking it was heart related. Patient was admitted for Nstemi. Per Nayeli patient has a rollator for home use. Patients PCP is Dr Ayoub. Patient has a advanced directive and Nayeli is POA. Nayeli informed me she will be able to care for patient on discharge. Per Nayeli patient has good family support. I informed Nayeli patients post discharge needs to be determined prior to discharge. Nayeli verbalized understanding. Addendum: 04/03/20 at 1558 by Casi CROFT Amended: Links added.
[2020-04-03 17:29] VITALS: BP 143/82
[2020-04-03] MEDS: LACTULOSE 20Gm/30ML SOLN PO PRN (17:42)
[2020-04-03] MEDS: traMADol HCL 50 MG TAB PO PRN (17:42)
--- NOTE | 2020-04-03 18:08 | NUR ---
Respiratory note: POST MED NEB TX PT REFUSED O2 CANNULA, PT SPO2 NOTED AT 93% PRE MED NEB TX. WILL CONTINUE TO MONITOR.
--- NOTE | 2020-04-03 19:15 | NUR ---
Opening Shift Note Assumed care of patient, awake and alert. No S/S of distress/SOB or pain. BED IS IN THE LOWEST POSITION, SIDE RAILS UP X2 CALL LIGHT WITH IN REACH.Instructed on POC and to call for assist PRN, will continue to monitor for changes Q1hr and PRN .
[2020-04-03] MEDS: ATORVASTATIN 20 MG TAB PO SCH (21:25)
[2020-04-03 22:00] VITALS: BP 138/73
[2020-04-04] VITALS (7 sets, daily range): BP systolic 101–138; BP diastolic 52–68
--- NOTE | 2020-04-04 00:07 | NUR ---
Respiratory note: PT REFUSED MED NEB TX AT THIS TIME. PT PRESENTING NO RESPIRATORY DISTRESS.
[2020-04-04] MEDS: SODIUM CHLOR 0.9% PF (SALINE LOCK) 10ML VIAL/SYR IV SCH ×3 (05:32→22:23)
[2020-04-04] MEDS: ALBUTEROL SULF 2.5 MG/0.5ML(0.5%) NEB SOLN NEB SCH ×4 (06:07→17:49)
[2020-04-04] MEDS: IPRATROPIUM BROM 0.5 MG/2.5ML INH SOL NEB SCH ×4 (06:07→17:49)
--- NOTE | 2020-04-04 06:37 | NUR ---
END OF SHIFT NOTE WILL ENDORSE PT CARE TO DAY SHIFT RN PT A0X4 NO S/S OF DISTRESS OR SOB
--- NOTE | 2020-04-04 08:00 | NUR ---
ASSESSMENT NOTE PT IS ALERT ORIENTED X4, RESTING IN BED COMFORTABLY, NO DISTRESS NOTED, ABLE TO SELF REPOSITION AND VERBALIS HER DEMANDS, DENIES ANY CHEST PAIN 0/10,FALL RISK PRECAUTIONS, CALL LIGHT WITHIN REACH
[2020-04-04] MEDS: FUROSEMIDE 40 MG/4 ML VIAL IV SCH (09:38)
[2020-04-04] MEDS: METOPROLOL TARTRATE 25 MG TAB PO SCH ×2 (09:39→22:00)
[2020-04-04] MEDS: LISINOPRIL 20 MG TAB PO SCH (09:39)
[2020-04-04] MEDS: ENOXAPARIN SOD 80 MG/0.8ML SYRINGE SC SCH ×2 (09:40→22:28)
[2020-04-04] MEDS: ASPirin 81 mg TAB PO SCH (09:40)
[2020-04-04] MEDS: POTASSIUM CHL 20 Meq TABLET PO SCH (09:40)
[2020-04-04] MEDS: NITROGLYCERIN 0.2MG/HR TOPICAL PATCH TD SCH (09:41)
--- NOTE | 2020-04-04 10:12 | NUR ---
DR METCALF AT BED SIDE FOLLOWING UP ON PT, INFORM PT WITH A RESIDENTIAL DESIGNER FROM [place] [facility] [place] THAT SHE BLOCKED ARTERIES AND SHE MAY NEED OPEN HEART SURGERY AND NEED TO DISCUSS IT WITH HER DAUGHTER
--- NOTE | 2020-04-04 10:18 | NUR ---
PT STATED I DON'T WANT THE SURGERY, MY HAD IT AND IN WITHIN ONE MONTH
--- NOTE | 2020-04-04 10:18 | NUR ---
DR METCALF OVER THE PHONE WITH PATIENT'S DAUGHTER GABINO REGARDING OPEN HEART SURGERY
--- NOTE | 2020-04-04 10:26 | NUR ---
PATIENT'S DAUGHTER INFORM DR TEA LLAMAS FOR STENT BUT NO FOR SURGERY
--- NOTE | 2020-04-04 10:31 | NUR ---
DR METCALF SPOKE WITH DR JASMINE REGARDING PATIENT AND HER DAUGHTER WISHES TO HAVE STENT
--- NOTE | 2020-04-04 16:30 | NUR ---
PT IS AMBULATING IN THE HALLWAYS WITH FRONT WHEEL WALKER, HAS HER MASK ON, NO DISTRESS NOTED, CONTINUE MONITORING
--- NOTE | 2020-04-04 18:39 | NUR ---
PT CONTINUE STABLE, CONTINUE MONITORING
--- NOTE | 2020-04-04 19:54 | NUR ---
PATIENT EDUCATION PATIENT EDUCATION GIVEN TO PATIENT REGARDING LEFT HEART CATHERIZATION PRINTED IN INDONESIAN. INFORMED PATIENT TO NOT EAT OR DRINK AFTER MIDNIGHT. PATIENT VERBALIZES UNDERSTANDING NO QUESTIONS ASKED.
[2020-04-04] MEDS: ATORVASTATIN 20 MG TAB PO SCH (22:28)
[2020-04-05] MEDS: ALBUTEROL SULF 2.5 MG/0.5ML(0.5%) NEB SOLN NEB SCH ×3 (00:02→12:00)
[2020-04-05] MEDS: IPRATROPIUM BROM 0.5 MG/2.5ML INH SOL NEB SCH ×3 (00:02→12:00)
[2020-04-05 04:58] VITALS: BP 119/53
[2020-04-05 08:00] VITALS: BP 99/36
[2020-04-05 08:47] VITALS: BP 101/41
[2020-04-05] MEDS: ASPirin 81 mg TAB PO SCH (10:00)
[2020-04-05] MEDS: LISINOPRIL 20 MG TAB PO SCH (10:00)
[2020-04-05] MEDS: FUROSEMIDE 40 MG/4 ML VIAL IV SCH (10:00)
[2020-04-05] MEDS: NITROGLYCERIN 0.2MG/HR TOPICAL PATCH TD SCH (10:00)
[2020-04-05] MEDS: ENOXAPARIN SOD 80 MG/0.8ML SYRINGE SC SCH (10:00)
[2020-04-05] MEDS: METOPROLOL TARTRATE 25 MG TAB PO SCH ×2 (10:00→22:49)
[2020-04-05] MEDS: POTASSIUM CHL 20 Meq TABLET PO SCH (10:00)
--- NOTE | 2020-04-05 10:00 | NUR ---
PT IS ANXIOUS STATED WHEN I AM GOING TO HAVE THE PROCEDURE>
[2020-04-05 10:27] LABS: Basophils # (auto) 0.1 10 ^3/uL (0-0.2); Basophils % (auto) 1.2 % (0.0-2.0); Eosinophils # (auto) 0.3 10 ^3/uL (0-0.8); Eosinophils % (auto) 4.8 % (0.0-7.0); Hematocrit 40.6 % (36.0-46.0); Hemoglobin 13.6 g/dL (12.2-16.2); Lymphocytes # (auto) 1.7 10 ^3/uL (0.4-5.4); Lymphocytes % (auto) 24.8 % (10.0-50.0); Mean Corpuscular Hgb Conc. 33.6 g/dL (32.0-36.0); Mean Corpuscular Volume 95.4 fL (80.0-100.0); Monocytes # (auto) 0.6 10 ^3/uL (0-1.3); Monocytes % (auto) 8.3 % (0.0-12.0); Neutrophils # (auto) 4.3 10 ^3/uL (1.6-8.6); Neutrophils % (auto) 60.9 % (37.0-80.0); Platelet Count (auto) 196 10^3/uL (140-450); Red Blood Cells 4.25 10^6/uL (4.0-5.20); Red Cell Distribution Width 13.4 % (11.8-14.3)
[2020-04-05 10:40] LABS: INR 1.08 (0.9-1.15); Partial Thromboplastin Time 32.8 sec (23.64-32.05)
--- NOTE | 2020-04-05 10:40 | NUR ---
TRANSFER PT TO MAINTENANCE PORTER VIA HOSPITAL BED, PT IS ALERT ORIENTED 4, NO DISTRESS NOTED, DENIES ANY CHEST PAIN 0/10, REPORT GIVEN TO DELIA BERNAL RN
[2020-04-05 10:54] LABS: BUN/Creatinine Ratio 33.7; Potassium 4.4 mmol/L (3.5-5.1)
--- NOTE | 2020-04-05 12:09 | NUR ---
Respiratory note: SCHEDULE [place] TX NOT GIVEN. PT IS AT PROCEDURE. MEDICATION RETURNED TO PYXIS.
[2020-04-05] MEDS ORDERED: LIDOCAINE 2%HCL (LOCAL ANESTH.) INJ 20ML MDV ONE (12:36)
[2020-04-05] MEDS ORDERED: IODIXANOL 320MG/ML 100ML BTL IV ONE ×4 (12:36→13:45)
[2020-04-05] MEDS ORDERED: MIDAZOLAM HCL 1MG/1ML-2 ML VIAL ONE (12:54)
[2020-04-05] MEDS ORDERED: ANGIOMAX 250 MG VIAL IV ONE ×2 (12:54→14:10)
[2020-04-05] MEDS ORDERED: fentaNYL CITRATE 100 MCG/2 ML VL ONE ×2 (12:54→14:31)
[2020-04-05] MEDS ORDERED: SODIUM CHL 0.9% 50 ML ONE ×2 (12:55→14:10)
[2020-04-05] MEDS ORDERED: ATROPINE SULF 1 MG/10ml SYR ONE (13:13)
[2020-04-05] MEDS: SODIUM CHLOR 0.9% PF (SALINE LOCK) 10ML VIAL/SYR IV SCH ×2 (14:00→22:48)
[2020-04-05] MEDS ORDERED: hydrALAZINE HCL 20 MG/ML VL ONE (14:02)
[2020-04-05] MEDS ORDERED: diphenhdrAMINE HCL 50 MG/1 ML VL ONE (14:17)
--- NOTE | 2020-04-05 14:19 | NUR ---
Nutrition Followup Note Wt 80.0 Pt is NPO for [facility] 04/05. 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 Prioor to NPO pt po intake was adequate aeb pt with 75-100% po intake on 04/04 per RN nutrition doc. Est Energy needs BW 76 [id number] kcals (23-25 kcal/kgBW), Est Protein needs: 76-83 gms/day (1.0-1.1 gm/kgBW). Will continue to monitor and reassess prn. Labs: BUn 34H, Creat 1.04H, GLUC 107H, ALB 3.4WNL BM: 1 BM 04/04 per RN doc Skin: BS 21 low risk, full details in home care companion doc PES: Altered nutrition related lab values r.t current chronic medical condition aeb elev lipids Comments 1)consider glucerna 1 carton bid if PO intake is low 2) refer to CDE on DC 3) continue current plan of care
[2020-04-05] MEDS ORDERED: ONDANSETRON HCL 4 MG/2 ML VIAL ONE (14:20)
[2020-04-05] MEDS ORDERED: CLOPIDOGREL 300 MG TAB ONE ×2 (14:52→14:55)
[2020-04-05] MEDS ORDERED: ASPirin 325 MG TAB ONE (14:52)
--- NOTE | 2020-04-05 15:30 | NUR ---
PT NEW ROOM WILL BE 220 A
--- NOTE | 2020-04-05 16:20 | NUR ---
PATIENT IS BACK VIA HOSPITAL BED, SLEEPY ABUSABLE, FLAT IN BED TILL 1715, RT GROIN DRESSING DRY AND CLEAN, NO SIGNS NOTED OF ACTIVE BLEEDING NOTED, NEXT TO THE NURSING STATION
[2020-04-05 17:05] VITALS: BP 143/62
--- NOTE | 2020-04-05 17:30 | NUR ---
PT CONTINUE STABLE, MADE AWARE THAT SHE CAN SIT UP, NO SIGNS OF BLEEDING NOTED ON THE RT GROIN
[2020-04-05 22:00] VITALS: BP 116/52
[2020-04-05] MEDS: CARVEDILOL 12.5 MG TAB PO SCH (22:48)
[2020-04-05] MEDS: ATORVASTATIN 20 MG TAB PO SCH (22:49)
[2020-04-06 05:00] VITALS: BP 118/58
[2020-04-06] MEDS: SODIUM CHLOR 0.9% PF (SALINE LOCK) 10ML VIAL/SYR IV SCH ×3 (06:14→22:44)
[2020-04-06] MEDS: IPRATROPIUM BROM 0.5 MG/2.5ML INH SOL NEB SCH ×5 (07:16→23:55)
[2020-04-06] MEDS: ALBUTEROL SULF 2.5 MG/0.5ML(0.5%) NEB SOLN NEB SCH ×5 (07:16→23:55)
--- NOTE | 2020-04-06 08:10 | NUR ---
OPENING SHIFT NOTE Assumed care of patient. PT IS awake and alert. No S/S of distress/SOB. Bed in lowest position, and call light within reach. Instructed on POC and to call for assist PRN, will continue to monitor for changes Q1hr and PRN .
[2020-04-06 09:00] VITALS: BP 117/47
--- NOTE | 2020-04-06 09:08 | NUR ---
RECEIVED CALL FROM PT'S DAUGHTER. SHE STATED THAT DR JASMINE TOLD HER THE PT COULD GO HOME ON WEDNESDAY OR WEDNESDAY. STATED SHE WANTED TO SPEAK WITH DR JASMINE. STATED SHE DID NOT FEEL COMFORTABLE WITH DISCHARGE. WILL NOTIFY DR METCALF.
[2020-04-06 10:28] LABS: Basophils # (auto) 0.1 10 ^3/uL (0-0.2); Basophils % (auto) 0.6 % (0.0-2.0); Eosinophils # (auto) 0.1 10 ^3/uL (0-0.8); Hematocrit 41.3 % (36.0-46.0); Hemoglobin 14.1 g/dL (12.2-16.2); Lymphocytes # (auto) 1.2 10 ^3/uL (0.4-5.4); Lymphocytes % (auto) 11.4 % (10.0-50.0); Mean Corpuscular Hemoglobin 32.4 pg (28.0-32.0); Mean Corpuscular Hgb Conc. 34.2 g/dL (32.0-36.0); Mean Corpuscular Volume 94.6 fL (80.0-100.0); Monocytes # (auto) 0.8 10 ^3/uL (0-1.3); Monocytes % (auto) 7.3 % (0.0-12.0); Neutrophils # (auto) 8.3 10 ^3/uL (1.6-8.6); Neutrophils % (auto) 79.7 % (37.0-80.0); Platelet Count (auto) 222 10^3/uL (140-450); Red Blood Cells 4.37 10^6/uL (4.0-5.20); Red Cell Distribution Width 13.8 % (11.8-14.3); White Blood Cell 10.4 10^3/uL (4.4-10.8)
--- NOTE | 2020-04-06 10:34 | NUR ---
DR METCALF SPOKE WITH PT'S DAUGHTER. DAUGHTER INSISTED SHE WANTED TO FOLLOW HER UNDERSTANDING OF PT'S DC PLAN. DR METCALF ORDERED HOLD OF DISCHARGE.
[2020-04-06 10:47] LABS: BUN/Creatinine Ratio 32.7; Potassium 4.7 mmol/L (3.5-5.1)
[2020-04-06] MEDS: FUROSEMIDE 40 MG/4 ML VIAL IV SCH (11:02)
[2020-04-06] MEDS: POTASSIUM CHL 20 Meq TABLET PO SCH (11:04)
[2020-04-06] MEDS: METOPROLOL TARTRATE 25 MG TAB PO SCH ×2 (11:04→22:45)
[2020-04-06] MEDS: ASPirin 81 mg TAB PO SCH (11:05)
[2020-04-06] MEDS: CLOPIDOGREL BISULFATE 75 MG TAB PO SCH (11:06)
[2020-04-06] MEDS: NITROGLYCERIN 0.2MG/HR TOPICAL PATCH TD SCH (11:06)
[2020-04-06] MEDS: CARVEDILOL 12.5 MG TAB PO SCH ×2 (11:06→22:44)
[2020-04-06] MEDS: LISINOPRIL 20 MG TAB PO SCH (11:07)
[2020-04-06 13:00] VITALS: BP 99/52
--- NOTE | 2020-04-06 13:02 | NUR ---
Respiratory note: Medneb tx not administered, pt refused tx and said "I don't need one right now." HR 67, RR 16, SPO2 92% on room air. Pt sitting up in bed comfortably eating lunch, no s/s of respiratory distress noted.
[2020-04-06 16:41] VITALS: BP 91/45
[2020-04-06 22:00] VITALS: BP 108/67
[2020-04-06] MEDS: ATORVASTATIN 20 MG TAB PO SCH (22:45)
--- NOTE | 2020-04-06 23:55 | NUR ---
Respiratory note: SCHEDULED MED NEB TX NOT GIVEN. PT WAS ASLEEP, NO RESP DISTRESS NOTED. PT STATED THAT SHE DID NOT WANT TX UNTIL THE AM.
--- NOTE | 2020-04-07 02:23 | NUR ---
Spoke to MD Alberto regarding low BP Reassessed patient 0215 because Patient BP on reassessment after was 94/58 with pulse fo 71. Patient was asymptomatic on reassesment. Checked at 0215: BP was 88/34 with pulse of 64. Again, patient asymptomatic. Notified MD of low BP after giving BP meds. MD was consfued why I would give BP meds for BP of 108/67. I told MD that BP is her trending norm and that she has not become symptomatic at all. Orders received: 1) Discontinue mtoprolol and Coreg, 2) NS Bolus 500 mls once. Orders received, verified, and placed.
[2020-04-07] MEDS ORDERED: SODIUM CHLORIDE 0.9% 500 ML IV ONE (02:30)
[2020-04-07 05:00] VITALS: BP 89/38
[2020-04-07] MEDS: SODIUM CHLOR 0.9% PF (SALINE LOCK) 10ML VIAL/SYR IV SCH (05:50)
[2020-04-07] MEDS: ALBUTEROL SULF 2.5 MG/0.5ML(0.5%) NEB SOLN NEB SCH ×2 (06:13→11:16)
[2020-04-07] MEDS: IPRATROPIUM BROM 0.5 MG/2.5ML INH SOL NEB SCH ×2 (06:13→11:16)
--- NOTE | 2020-04-07 07:57 | NUR ---
OPENING SHIFT NOTE Resumed care of patient. PT IS awake and alert. No S/S of distress/SOB. PT is complaining and stating she wants to go home. Will speak with daughter and MD. Bed in lowest position, and call light within reach. Instructed on POC and to call for assist PRN, will continue to monitor for changes Q1hr and PRN .
[2020-04-07 09:00] VITALS: BP 121/68
[2020-04-07] MEDS: NITROGLYCERIN 0.2MG/HR TOPICAL PATCH TD SCH (10:00)
[2020-04-07] MEDS ORDERED: METOPROLOL TARTRATE 25 MG TAB PO SCH (10:00)
[2020-04-07] MEDS ORDERED: LISINOPRIL 10 MG TAB PO SCH (10:00)
[2020-04-07] MEDS: FUROSEMIDE 40 MG/4 ML VIAL IV SCH (12:30)
[2020-04-07] MEDS: POTASSIUM CHL 20 Meq TABLET PO SCH (12:30)
[2020-04-07] MEDS: ASPirin 81 mg TAB PO SCH (12:30)
[2020-04-07] MEDS: CLOPIDOGREL BISULFATE 75 MG TAB PO SCH (12:31)
--- NOTE | 2020-04-07 12:58 | NUR ---
SPOKE WITH PTS DAUGHTER REGARDING DISCHARGE PLAN. DAUGHTER SAID SHE WILL BE AVAILABLE TO PAPER FOLDER PT IN 2 HOURS. WILL HAVE PT READY FOR DISCHARGE AT THAT TIME.
[2020-04-07 13:00] VITALS: BP 116/48
[2020-04-07 13:45] VITALS: BP 116/48
== END 2020-04-07 14:50 | disposition home or self-care (01) | DRG 246 ==
LOC: EDBD 11:45 → ER 11:45 → TELE 11:46 → TELE-EAST 16:02 → TELE-CENTR 04-05 16:30
PROVIDERS: ADMIT Internal Medicine; ATTEND Family Medicine
PROC: 4A023N7 Measurement of Cardiac Sampling and Pressure, Left Heart, Percutaneous Approach (ICD-10-PCS; principal; 2020-04-03)
PROC: B211YZZ Fluoroscopy of Multiple Coronary Arteries using Other Contrast (ICD-10-PCS; 2020-04-03)
PROC: B215YZZ Fluoroscopy of Left Heart using Other Contrast (ICD-10-PCS; 2020-04-03)
PROC: 027136Z Dilation of Coronary Artery, Two Arteries with Three Drug-eluting Intraluminal Devices, Percutaneous Approach (ICD-10-PCS; 2020-04-05)
PROC: 02C13ZZ Extirpation of Matter from Coronary Artery, Two Arteries, Percutaneous Approach (ICD-10-PCS; 2020-04-05)
PROC: B211YZZ Fluoroscopy of Multiple Coronary Arteries using Other Contrast (ICD-10-PCS; 2020-04-05)
PROC: B241ZZ3 Ultrasonography of Multiple Coronary Arteries, Intravascular (ICD-10-PCS; 2020-04-05)
DX: T82.855A Stenosis of coronary artery stent, initial encounter (principal); I21.4 Non-ST elevation (NSTEMI) myocardial infarction; I50.33 Acute on chronic diastolic (congestive) heart failure; J44.9 Chronic obstructive pulmonary disease, unspecified; I16.0 Hypertensive urgency; E66.3 Overweight; E66.9 Obesity, unspecified; E78.5 Hyperlipidemia, unspecified; E11.9 Type 2 diabetes mellitus without complications; Y83.1 Surgical operation with implant of artificial internal device as the cause of abnormal reaction of the patient, or of later complication, without mention of misadventure at the time of the procedure; I11.0 Hypertensive heart disease with heart failure; I25.10 Atherosclerotic heart disease of native coronary artery without angina pectoris; I25.2 Old myocardial infarction; Z79.82 Long term (current) use of aspirin; Z68.27 Body mass index [BMI] 27.0-27.9, adult
CPT/HCPCS: 36415; 71045; 78452; 80048; 80053; 80061; 81001; 82550; 82565; 82962; 83036; 83735; 83880; 84484; 85025; 85379; 85610; 85652; 85730; 86141; 86850; 86900; 86901; 92929; 92933; 92978; 92979; 93005; 93017; 93306; 93458; 93886; 94640; 99152; 99153; C1725; C1874; C1887; G0378; J0153; J1815; J2250; J2405; Q9967

== ENCOUNTER → 2020-04-16 | Outpatient (CLI) | payer OTHER ==
[2020-04-16 12:44] LABS: Albumin 3.2 g/dL (3.4-5.0); Calcium 8.4 mg/dL (8.5-10.1); Potassium 3.9 mmol/L (3.5-5.1)
[2020-04-16 12:47] LABS: Bilirubin, Total 0.4 mg/dL (0.2-1.0); Total Protein 6.9 g/dL (6.4-8.2)
== END | disposition home or self-care (01) ==
LOC: LAB 11:54
PROVIDERS: ATTEND Internal Medicine
DX: E11.9 Type 2 diabetes mellitus without complications (principal); I10 Essential (primary) hypertension
CPT/HCPCS: 36415; 80053

== ENCOUNTER → 2020-05-16 | Outpatient (CLI) | payer OTHER ==
[2020-05-16 10:48] LABS: Basophils # (auto) 0.1 10 ^3/uL (0-0.2); Basophils % (auto) 0.9 % (0.0-2.0); Eosinophils # (auto) 0.2 10 ^3/uL (0-0.8); Eosinophils % (auto) 3.5 % (0.0-7.0); Hematocrit 42.8 % (36.0-46.0); Hemoglobin 14.4 g/dL (12.2-16.2); Lymphocytes # (auto) 1.2 10 ^3/uL (0.4-5.4); Mean Corpuscular Hemoglobin 31.8 pg (28.0-32.0); Mean Corpuscular Hgb Conc. 33.7 g/dL (32.0-36.0); Mean Corpuscular Volume 94.3 fL (80.0-100.0); Monocytes # (auto) 0.5 10 ^3/uL (0-1.3); Monocytes % (auto) 8.2 % (0.0-12.0); Neutrophils # (auto) 4.6 10 ^3/uL (1.6-8.6); Neutrophils % (auto) 69.4 % (37.0-80.0); Platelet Count (auto) 225 10^3/uL (140-450); Red Blood Cells 4.54 10^6/uL (4.0-5.20); Red Cell Distribution Width 12.8 % (11.8-14.3); White Blood Cell 6.7 10^3/uL (4.4-10.8)
[2020-05-16 11:21] LABS: Albumin 3.7 g/dL (3.4-5.0); Calcium 8.7 mg/dL (8.5-10.1); Potassium 3.9 mmol/L (3.5-5.1)
[2020-05-16 11:24] LABS: BUN/Creatinine Ratio 23.8; Bilirubin, Total 0.8 mg/dL (0.2-1.0); Total Protein 7.5 g/dL (6.4-8.2)
== END | disposition home or self-care (01) ==
LOC: LAB 10:19
PROVIDERS: ATTEND Internal Medicine
DX: I10 Essential (primary) hypertension (principal); D64.9 Anemia, unspecified; R09.3 Abnormal sputum
CPT/HCPCS: 36415; 80053; 85025; 87070; 87205

== ENCOUNTER 2020-07-10 11:25 | Inpatient (IN) | payer OTHER ==
[~2020-07-10] VITALS: Ht 165.1 cm; Wt 76.8 kg
[2020-07-10] MEDS ORDERED: MORPHINE SULF INJ 2 MG/ML SYRINGE 1ML IV PRN ×2 (12:45)
[2020-07-10] MEDS ORDERED: ONDANSETRON HCL 4 MG/2 ML VIAL IV PRN (12:45)
[2020-07-10] MEDS ORDERED: NITROGLYCERIN 0.4 MG SL TAB SL PRN (12:45)
[2020-07-10] MEDS ORDERED: HYDROcodone-ACET 5/325MG TAB PO PRN (12:45)
[2020-07-10] MEDS ORDERED: hydrALAZINE HCL 20 MG/ML VL IV PRN (12:45)
[2020-07-10] MEDS ORDERED: DOCUSATE SOD 100 MG CAP PO PRN (12:45)
[2020-07-10] MEDS ORDERED: ACETAMINOPHEN 500 MG TAB PO PRN (12:45)
[2020-07-10] MEDS ORDERED: CARVEDILOL 3.125 MG TAB PO ONE (13:30)
[2020-07-10] MEDS ORDERED: ASPirin 81 mg TAB PO ONE (13:30)
[2020-07-10] MEDS ORDERED: FAMOTIDINE 20 MG TAB PO ONE (13:30)
[2020-07-10] MEDS ORDERED: LISINOPRIL 20 MG TAB PO ONE (13:30)
[2020-07-10] MEDS ORDERED: HCTZ 25 MG TAB PO ONE (13:30)
[2020-07-10] MEDS ORDERED: RANO500T2 PO (13:36)
[2020-07-10] MEDS ORDERED: CLOP75TA41 PO (13:36)
[2020-07-10] MEDS ORDERED: FURO20TA3 PO (13:36)
[2020-07-10] MEDS ORDERED: METO25TA5 PO (13:36)
[2020-07-10] MEDS ORDERED: RANO1000 PO (13:36)
[2020-07-10] MEDS ORDERED: ASPI-543 PO (13:36)
[2020-07-10 13:59] LABS: Basophils # (auto) 0 10 ^3/uL (0-0.2); Basophils % (auto) 0.7 % (0.0-2.0); Eosinophils # (auto) 0.2 10 ^3/uL (0-0.8); Eosinophils % (auto) 3.4 % (0.0-7.0); Hematocrit 41.4 % (36.0-46.0); Lymphocytes # (auto) 1.1 10 ^3/uL (0.4-5.4); Lymphocytes % (auto) 16.3 % (10.0-50.0); Mean Corpuscular Hemoglobin 31.6 pg (28.0-32.0); Mean Corpuscular Hgb Conc. 33.9 g/dL (32.0-36.0); Mean Corpuscular Volume 93.2 fL (80.0-100.0); Monocytes # (auto) 0.5 10 ^3/uL (0-1.3); Monocytes % (auto) 7.2 % (0.0-12.0); Neutrophils # (auto) 5.1 10 ^3/uL (1.6-8.6); Neutrophils % (auto) 72.4 % (37.0-80.0); Platelet Count (auto) 226 10^3/uL (140-450); Red Blood Cells 4.44 10^6/uL (4.0-5.20); Red Cell Distribution Width 13.3 % (11.8-14.3)
[2020-07-10 14:24] LABS: Anion Gap 6 (5-15); Blood Urea Nitrogen 15 mg/dL (7-18); Calcium 8.5 mg/dL (8.5-10.1); Carbon Dioxide 27 mmol/L (21-32); Chloride 103 mmol/L (98-107); Glucose 169 mg/dL (74-106); Potassium 3.5 mmol/L (3.5-5.1); Sodium 136 mmol/L (136-145)
[2020-07-10 14:28] LABS: BUN/Creatinine Ratio 20.3; GFR African American 96 mL/min; GFR Non-African American 79 mL/min
[2020-07-10] MEDS ORDERED: POTA1TAB4 PO (16:35)
[2020-07-10 16:47] VITALS: BP 148/70
[2020-07-10] MEDS: ATORVASTATIN 20 MG TAB PO SCH (18:11)
[2020-07-10] MEDS: ALBUTEROL SULF 2.5 MG/0.5ML(0.5%) NEB SOLN NEB PRN (19:45)
[2020-07-10] MEDS: IPRATROPIUM BROM 0.5 MG/2.5ML INH SOL NEB PRN (19:45)
[2020-07-10 20:00] VITALS: BP 119/43
[2020-07-10 20:42] VITALS: BP 133/67
[2020-07-10 22:00] VITALS: BP 119/43
[2020-07-10] MEDS: CARVEDILOL 3.125 MG TAB PO SCH (22:00)
[2020-07-11 05:00] VITALS: BP 138/66
[2020-07-11] MEDS: IPRATROPIUM BROM 0.5 MG/2.5ML INH SOL NEB PRN (07:24)
[2020-07-11] MEDS: ALBUTEROL SULF 2.5 MG/0.5ML(0.5%) NEB SOLN NEB PRN (07:24)
[2020-07-11 08:00] VITALS: BP 129/63
[2020-07-11 08:57] VITALS: BP 129/63
[2020-07-11] MEDS ORDERED: HCTZ 25 MG TAB PO SCH (10:00)
[2020-07-11] MEDS: CARVEDILOL 3.125 MG TAB PO SCH (10:00)
[2020-07-11] MEDS ORDERED: CLOPIDOGREL BISULFATE 75 MG TAB PO SCH (10:00)
[2020-07-11] MEDS ORDERED: FAMOTIDINE 20 MG TAB PO SCH (10:00)
[2020-07-11] MEDS ORDERED: LISINOPRIL 20 MG TAB PO SCH (10:00)
[2020-07-11] MEDS ORDERED: ASPirin 81 mg TAB PO SCH (10:00)
[2020-07-11 12:45] VITALS: BP 115/56
[2020-07-11 14:45] VITALS: BP 115/56
[2020-07-11 16:58] VITALS: BP 131/78
[2020-07-11] MEDS: ATORVASTATIN 20 MG TAB PO SCH (18:00)
== END 2020-07-11 18:15 | disposition home or self-care (01) | DRG 189 ==
LOC: TELE-WESTW 11:25
PROVIDERS: ADMIT Nurse Practitioner Acute Care; ATTEND Internal Medicine
DX: J96.00 Acute respiratory failure, unspecified whether with hypoxia or hypercapnia (principal); D68.59 Other primary thrombophilia; E11.9 Type 2 diabetes mellitus without complications; E78.5 Hyperlipidemia, unspecified; I10 Essential (primary) hypertension; I25.10 Atherosclerotic heart disease of native coronary artery without angina pectoris; Z79.84 Long term (current) use of oral hypoglycemic drugs; I25.2 Old myocardial infarction; Z86.73 Personal history of transient ischemic attack (TIA), and cerebral infarction without residual deficits; Z95.5 Presence of coronary angioplasty implant and graft
CPT/HCPCS: 36415; 71045; 71046; 80048; 83036; 83880; 84484; 85025; 87081; 94640; G0378

== ENCOUNTER → 2021-04-15 | Outpatient (CLI) | payer OTHER ==
[~2021-04-15] MED LIST changes: +ASPI-543 PO; +ATOR-47 PO; -ATOR1TAB PO; +CLOP75TA70 PO; +FURO20TA3 PO; -LISI-646 PO; +LISI20TA28 PO; +METO25TA5 PO; -PSEU-123 PO; +PSEU-295 PO; +RANO1000 PO; +RANO500T2 PO
[2021-04-15 09:54] LABS: Potassium 4.1 mmol/L (3.5-5.1)
[2021-04-15 10:10] LABS: Albumin 3.5 g/dL (3.4-5.0); BUN/Creatinine Ratio 23.5; Bilirubin, Total 0.6 mg/dL (0.2-1.0); Calcium 8.5 mg/dL (8.5-10.1); Total Protein 7.4 g/dL (6.4-8.2)
== END | disposition home or self-care (01) ==
LOC: LAB 09:01
PROVIDERS: ATTEND Internal Medicine
DX: I50.9 Heart failure, unspecified (principal); E55.9 Vitamin D deficiency, unspecified
CPT/HCPCS: 36415; 80053; 83036; 83880

== ENCOUNTER 2021-08-24 18:46 | Emergency (ER) | payer OTHER ==
[~2021-08-24] VITALS: Ht 152.4 cm; Wt 63.5 kg
[2021-08-24 18:51] VITALS: BP 147/95
== END 2021-08-24 21:20 | disposition left against medical advice (07) ==
LOC: EDBD 18:46 → ER 18:47
DX: M79.604 Pain in right leg (principal); Z53.21 Procedure and treatment not carried out due to patient leaving prior to being seen by health care provider
CPT/HCPCS: 73502

== ENCOUNTER → 2021-09-16 | Outpatient (CLI) | payer OTHER ==
[2021-09-16 13:47] LABS: Albumin 3.7 g/dL (3.4-5.0); Calcium 8.6 mg/dL (8.5-10.1); Potassium 4.2 mmol/L (3.5-5.1)
[2021-09-16 13:51] LABS: BUN/Creatinine Ratio 28.8; Bilirubin, Total 0.5 mg/dL (0.2-1.0); Total Protein 7.5 g/dL (6.4-8.2)
== END | disposition home or self-care (01) ==
LOC: LAB 12:30
PROVIDERS: ATTEND Internal Medicine
DX: J44.9 Chronic obstructive pulmonary disease, unspecified (principal)
CPT/HCPCS: 36415; 80053; 83880

== ENCOUNTER 2022-03-22 18:40 | Inpatient (IN) | payer OTHER ==
[~2022-03-22] VITALS: Ht 160 cm; Wt 74.8 kg
[2022-03-22] MEDS ORDERED: HYDR12.56 PO (18:54)
[2022-03-22] MEDS ORDERED: CLOP75TA70 PO (18:54)
[2022-03-22] MEDS ORDERED: ASPI-543 PO (18:54)
[2022-03-22] MEDS ORDERED: LOSA25TA38 PO (18:54)
[2022-03-22] MEDS ORDERED: ATOR20TA50 PO (18:54)
[2022-03-22 19:00] VITALS: BP 196/67
[2022-03-22] MEDS ORDERED: hydrALAZINE HCL 20 MG/ML VL IV PRN (19:15)
[2022-03-22] MEDS ORDERED: LABETALOL HCL 5 MG/ML 4ML SYRINGE IV PRN (19:15)
[2022-03-22] MEDS ORDERED: MORPHINE SULFATE INJ 2 MG/ml SYRG IV PRN ×2 (19:30→22:45)
[2022-03-22] MEDS ORDERED: NITROGLYCERIN 0.4 MG SL TAB SL PRN (19:30)
[2022-03-22 19:51] VITALS: BP 182/68
[2022-03-22 19:55] VITALS: BP 182/68
[2022-03-22 20:35] VITALS: BP 182/68
[2022-03-22 21:00] VITALS: BP 152/56
[2022-03-22 22:00] VITALS: BP 171/53
[2022-03-22] MEDS ORDERED: ALBUTEROL SULF 2.5 MG/0.5ML(0.5%) NEB SOLN NEB PRN (22:30)
[2022-03-22] MEDS ORDERED: LORazepam 0.5 MG TAB PO PRN (22:45)
[2022-03-22] MEDS ORDERED: SODIUM CHLORIDE 0.9% 1,000 ML IV SCH (22:45)
[2022-03-22] MEDS ORDERED: ONDANSETRON HCL 4 MG/2 ML VIAL IV PRN (22:45)
[2022-03-22] MEDS ORDERED: AZITHROMYCIN 500MG/ 250ML 250 ML IV ONE (22:45)
[2022-03-22] MEDS ORDERED: cefTRIAXone 1GM/50ML D5W 50 ML IV ONE (22:45)
[2022-03-22] MEDS ORDERED: ACETAMINOPHEN 325 MG TAB PO PRN (22:45)
[2022-03-23] VITALS (7 sets, daily range): BP systolic 121–174; BP diastolic 50–69
[2022-03-23 00:32] LABS: INR 1.1 (0.9-1.15); Partial Thromboplastin Time 26.9 sec (23.6-33.0)
[2022-03-23 00:41] LABS: Magnesium 2.2 mg/dL (1.6-2.6); Phosphorus 2.2 mg/dL (2.5-4.90)
[2022-03-23 04:13] LABS: Alcohol, Urine < 3.0 mg/dL (0-10); Amphetamine Screen, Urine NEGATIVE (NEGATIVE); Barbiturate Scree,Urine NEGATIVE (NEGATIVE); Benzodiazephine Screen, Urine NEGATIVE (NEGATIVE); Cannabinoid Screen, Urine NEGATIVE (NEGATIVE); Cocaine Screen, Urine NEGATIVE (NEGATIVE); Opiate Scree,Urine NEGATIVE (NEGATIVE); Phencyclidine Screen, Urine NEGATIVE (NEGATIVE); Protein, Urine 14.6 mg/dL (0.0-11.9); Urine Bacteria FEW /hpf (None Seen); Urine Blood TRACE /uL (Negative); Urine Mucus FEW (None Seen); Urine Specific Gravity 1.022 (1.001-1.035); Urine WBC 6 /hpf (0 - 5)
[2022-03-23 05:49] LABS: Basophils # (auto) 0.1 10 ^3/uL (0-0.2); Basophils % (auto) 1.1 % (0.0-2.0); Eosinophils # (auto) 0.1 10 ^3/uL (0-0.8); Eosinophils % (auto) 1.4 % (0.0-7.0); Hematocrit 42.5 % (36.0-46.0); Hemoglobin 14.6 g/dL (12.2-16.2); Lymphocytes # (auto) 1.5 10 ^3/uL (0.4-5.4); Lymphocytes % (auto) 15.6 % (10.0-50.0); Mean Corpuscular Hgb Conc. 34.5 g/dL (32.0-36.0); Mean Corpuscular Volume 92.9 fL (80.0-100.0); Monocytes # (auto) 0.5 10 ^3/uL (0-1.3); Monocytes % (auto) 5.8 % (0.0-12.0); Neutrophils # (auto) 7.2 10 ^3/uL (1.6-8.6); Neutrophils % (auto) 76.1 % (37.0-80.0); Nucleated Red Blood Cells % 0.1 %; Red Blood Cells 4.57 10^6/uL (4.0-5.20); Red Cell Distribution Width 13.6 % (11.8-14.3); White Blood Cell 9.4 10^3/uL (4.4-10.8)
[2022-03-23 06:05] LABS: INR 1.06 (0.9-1.15); Partial Thromboplastin Time 27.1 sec (23.6-33.0)
[2022-03-23 06:10] LABS: Potassium 3.5 mmol/L (3.5-5.1)
[2022-03-23 06:19] LABS: Albumin 3.3 g/dL (3.4-5.0); BUN/Creatinine Ratio 18.8; Bilirubin, Total 0.8 mg/dL (0.2-1.0); CRP High Sensitivity 0.29 mg/dL (< 0.3); Calcium 8.5 mg/dL (8.5-10.1); Magnesium 2.2 mg/dL (1.6-2.6); Phosphorus 2.8 mg/dL (2.5-4.90); Total Protein 6.8 g/dL (6.4-8.2); Uric Acid 3.6 mg/dL (2.6-6.0)
[2022-03-23 06:36] LABS: Thyroid Stimulating Hormone 3.15 uIU/mL (0.358-3.74)
[2022-03-23] MEDS: hydrALAZINE HCL 20 MG/ML VL IV PRN (09:23)
[2022-03-23] MEDS: ENOXAPARIN SOD 40 MG/0.4 ML SYRINGE SC SCH (09:24)
[2022-03-23] MEDS: FAMOTIDINE (10MG/ML) 2ML VL IV SCH (10:00)
[2022-03-23] MEDS ORDERED: NIFEdipine ER 30 MG TAB PO ONE (10:15)
[2022-03-23] MEDS ORDERED: IPRATROPIUM BROM 0.5 MG/2.5ML INH SOL NEB PRN (16:30)
[2022-03-23] MEDS ORDERED: FUROSEMIDE 20 MG/2 ML VIAL IV SCH (18:00)
[2022-03-23] MEDS: ATORVASTATIN 20 MG TAB PO SCH (21:12)
[2022-03-23] MEDS: cefTRIAXone 1GM/50ML D5W 50 ML IV SCH (21:14)
[2022-03-23] MEDS: AZITHROMYCIN 500MG/ 250ML 250 ML IV SCH (21:14)
[2022-03-24 04:00] VITALS: BP 187/66
[2022-03-24] MEDS: hydrALAZINE HCL 20 MG/ML VL IV PRN ×2 (05:31→18:44)
[2022-03-24 05:36] LABS: Potassium 3.4 mmol/L (3.5-5.1)
[2022-03-24 05:38] LABS: Magnesium 2.1 mg/dL (1.6-2.6)
[2022-03-24 09:00] VITALS: BP 104/41
[2022-03-24] MEDS: ASPirin-EC 81 mg tab PO SCH (09:24)
[2022-03-24] MEDS: FAMOTIDINE (10MG/ML) 2ML VL IV SCH (09:24)
[2022-03-24] MEDS: CLOPIDOGREL BISULFATE 75 MG TAB PO SCH (09:30)
[2022-03-24] MEDS: ENOXAPARIN SOD 40 MG/0.4 ML SYRINGE SC SCH (09:32)
[2022-03-24] MEDS: DOCUSATE SOD 100 MG CAP PO PRN (09:33)
[2022-03-24] MEDS: HYDROcodone-ACET 5/325MG TAB PO PRN (09:33)
[2022-03-24] MEDS ORDERED: POTASSIUM CHL 20 Meq TABLET PO ONE (09:45)
[2022-03-24] MEDS ORDERED: NIFEdipine ER 30 MG TAB PO SCH (10:00)
[2022-03-24] MEDS ORDERED: LISINOPRIL 20 MG TAB PO SCH (10:00)
[2022-03-24] MEDS ORDERED: FUROSEMIDE 20 MG TAB PO SCH (10:00)
[2022-03-24] MEDS: BUDESONIDE (INHALATION) 0.5 MG/2 ML NEB NEB SCH ×2 (10:46→21:52)
[2022-03-24] MEDS ORDERED: POTA10TA51 PO (11:05)
[2022-03-24] MEDS ORDERED: FURO40TA4 PO (11:05)
[2022-03-24] MEDS ORDERED: RANO500T3 PO (11:09)
[2022-03-24 13:00] VITALS: BP 114/42
[2022-03-24] MEDS ORDERED: ERGOCALCIFEROL 50,000 UNIT(1.25MG) CAP PO SCH (14:30)
[2022-03-24] MEDS ORDERED: ALBUTEROL SULF 2.5 MG/0.5ML(0.5%) NEB SOLN NEB PRN (14:45)
[2022-03-24] MEDS ORDERED: IPRATROPIUM BROM 0.5 MG/2.5ML INH SOL NEB PRN (14:45)
[2022-03-24 17:00] VITALS: BP 164/59
[2022-03-24] MEDS: ALBUTEROL SULF 2.5 MG/0.5ML(0.5%) NEB SOLN NEB SCH ×2 (18:19→21:52)
[2022-03-24] MEDS: IPRATROPIUM BROM 0.5 MG/2.5ML INH SOL NEB SCH ×2 (18:19→21:52)
[2022-03-24] MEDS ORDERED: LORazepam 2MG/ML-1ML VIAL IV PRN (19:15)
[2022-03-24] MEDS ORDERED: HALOPERIDOL LACTATE 5 MG/ML INJ VIAL IM PRN (19:45)
[2022-03-24 20:08] LABS: Folate (Folic Acid) 7.69 ng/mL (5.38-24)
[2022-03-24 22:00] VITALS: BP 141/43
[2022-03-24] MEDS: cefTRIAXone 1GM/50ML D5W 50 ML IV SCH (22:09)
[2022-03-24] MEDS: ATORVASTATIN 20 MG TAB PO SCH (22:10)
[2022-03-24] MEDS: AZITHROMYCIN 500MG/ 250ML 250 ML IV SCH (22:10)
[2022-03-24] MEDS: RANOLAZINE ER 500 MG TAB PO SCH (22:10)
[2022-03-24] MEDS: METOPROLOL TARTRATE 25 MG TAB PO SCH (22:11)
[2022-03-25] MEDS: ALBUTEROL SULF 2.5 MG/0.5ML(0.5%) NEB SOLN NEB SCH ×4 (02:22→14:36)
[2022-03-25 05:00] VITALS: BP 137/41
[2022-03-25] MEDS: BUDESONIDE (INHALATION) 0.5 MG/2 ML NEB NEB SCH (07:16)
[2022-03-25] MEDS: IPRATROPIUM BROM 0.5 MG/2.5ML INH SOL NEB SCH ×3 (07:16→14:36)
[2022-03-25 07:18] LABS: Calcium 8.5 mg/dL (8.5-10.1)
[2022-03-25 09:00] VITALS: BP 110/59
[2022-03-25] MEDS ORDERED: CYANOCOBALAMIN (B-12) 1000 MCG/1 ML VIAL IM ONE (09:00)
[2022-03-25] MEDS ORDERED: HALOPERIDOL LACTATE 5 MG/ML INJ VIAL IM PRN (09:00)
[2022-03-25] MEDS: FAMOTIDINE (10MG/ML) 2ML VL IV SCH (09:46)
[2022-03-25] MEDS: ASPirin-EC 81 mg tab PO SCH (09:49)
[2022-03-25] MEDS: RANOLAZINE ER 500 MG TAB PO SCH (09:49)
[2022-03-25] MEDS: HYDROcodone-ACET 5/325MG TAB PO PRN (09:49)
[2022-03-25] MEDS: DOCUSATE SOD 100 MG CAP PO PRN (09:49)
[2022-03-25] MEDS: CLOPIDOGREL BISULFATE 75 MG TAB PO SCH (09:50)
[2022-03-25] MEDS: METOPROLOL TARTRATE 25 MG TAB PO SCH (09:54)
[2022-03-25] MEDS: ENOXAPARIN SOD 40 MG/0.4 ML SYRINGE SC SCH (09:59)
[2022-03-25] MEDS ORDERED: LOSARTAN POTASSIUM 25 MG TAB PO SCH (10:00)
[2022-03-25] MEDS ORDERED: FUROSEMIDE 40 MG TAB PO SCH (10:00)
[2022-03-25] MEDS ORDERED: CYANOCOBALAMIN 500 MCG TAB PO SCH (10:00)
[2022-03-25] MEDS ORDERED: POTASSIUM CHL 20 Meq TABLET PO SCH (10:00)
[2022-03-25] MEDS ORDERED: CHOL20007 PO (11:57)
[2022-03-25] MEDS ORDERED: DOXY-286 PO (11:57)
[2022-03-25] MEDS ORDERED: ATO40T PO (11:57)
[2022-03-25] MEDS ORDERED: CYAN500T38 PO (11:57)
[2022-03-25] MEDS ORDERED: ALBUAER3 IN (11:57)
[2022-03-25 13:00] VITALS: BP 135/56
[2022-03-25 13:39] LABS: Folate (Folic Acid) 10.68 ng/mL (5.38-24)
[2022-03-25 15:29] VITALS: BP 110/59
== END 2022-03-25 17:10 | disposition home health service (06) | DRG 190 ==
LOC: EAST 18:40 → TELE-EAST 18:51
PROVIDERS: ADMIT Hospitalist; ATTEND Internal Medicine
DX: J44.1 Chronic obstructive pulmonary disease with (acute) exacerbation (principal); G93.41 Metabolic encephalopathy; I16.1 Hypertensive emergency; I50.42 Chronic combined systolic (congestive) and diastolic (congestive) heart failure; N39.0 Urinary tract infection, site not specified; E78.5 Hyperlipidemia, unspecified; H91.90 Unspecified hearing loss, unspecified ear; I25.10 Atherosclerotic heart disease of native coronary artery without angina pectoris; E53.8 Deficiency of other specified B group vitamins; E55.9 Vitamin D deficiency, unspecified; E87.6 Hypokalemia; Z20.822 Contact with and (suspected) exposure to COVID-19; F02.80 Dementia in other diseases classified elsewhere, unspecified severity, without behavioral disturbance, psychotic disturbance, mood disturbance, and anxiety; R73.03 Prediabetes; G30.9 Alzheimer's disease, unspecified; I11.0 Hypertensive heart disease with heart failure; Z79.02 Long term (current) use of antithrombotics/antiplatelets; Z79.82 Long term (current) use of aspirin; Z79.899 Other long term (current) drug therapy; Z95.5 Presence of coronary angioplasty implant and graft
CPT/HCPCS: 36415; 70551; 71045; 80048; 80053; 80061; 80307; 81001; 82306; 82550; 82607; 82728; 82746; 83036; 83090; 83615; 83690; 83735; 83880; 83970; 84100; 84132; 84156; 84439; 84443; 84484; 84550; 85025; 85379; 85610; 85652; 85730; 86141; 87040; 87086; 93306; 94640; 97116; 97163; 97530; G0378; J0696; J3490